=== PATIENT | female | born 1990 | race Caucasian/White ===

== ENCOUNTER 2017-06-03 17:35 | Emergency (ER) | payer SELFPAY ==
[2017-06-03] MEDS ORDERED: Ketorolac 60 MG/2 ML SDV IM ONE (18:13)
--- NOTE | 2017-06-03 18:37 | EDM.PDOC ---
ED HPI GENERAL MEDICAL PROBLEM - General Chief Complaint: Lower Extremity Injury/Pain Stated Complaint: PAIN RT SIDE HIP Time Seen by Provider: 06/03/17 17:53 Source of Information: Reports: Patient - History of Present Illness INITIAL COMMENTS - FREE TEXT/NARRATIVE: HISTORY AND PHYSICAL: History of present illness: [Obese female Patient presents with right-sided hip pain that radiates down the lateral side of her right leg to the level of the knee, rates 9 out of 10 today she had to leave work and was quite tearful. States she recently moved here 2 weeks ago she had no pain prior to this, she began work over the last 7-10 days and she has noted some small short lasting episodes of pain over the right hip lasting for 5 minutes or so at a time this is steadily increased to her now she is unable to bear weight without pain No fever nausea vomiting chills sweats no chest pain shortness breath headache dizziness palpitation no bowel or urine symptoms patient denies any trauma Patient denies an increase of activity such as heavy exercise however she has taken a job at [employer] which would be an increase in activity for this patient as she is been fairly sedentary since January ] Review of systems: As per history of present illness and below otherwise all systems reviewed and negative. Past medical history: As per history of present illness and as reviewed below otherwise noncontributory. Surgical history: As per history of present illness and as reviewed below otherwise noncontributory. Social history: No reported history of drug or alcohol abuse. Family history: As per history of present illness and as reviewed below otherwise noncontributory. Physical exam: HEENT: Atraumatic, normocephalic, pupils reactive, negative for conjunctival pallor or scleral icterus, mucous membranes moist, throat clear, neck supple, nontender, trachea midline. Lungs: Clear to auscultation, breath sounds equal bilaterally, chest nontender. Heart: S1S2, regular, negative for clicks, rubs, or JVD. Abdomen: Soft, nondistended, nontender. Negative for masses or hepatosplenomegaly. Negative for costovertebral tenderness. Pelvis: Stable nontender. Genitourinary: Deferred. Rectal: Deferred. Extremities: Atraumatic, negative for cords or calf pain. Neurovascular unremarkable. Neuro: Awake, alert, oriented. Cranial nerves II through XII unremarkable. Cerebellum unremarkable. Motor and sensory unremarkable throughout. Exam nonfocal. Right lower extremity a can reproduce pain along entire iliotibial band on the right actual hip knee seemed to be unaffected there is no redness warmth or open lesion no bruising entirely limb is neurovascularly intact Diagnostics: [Pelvis with right hip HCG CBC, CRP ] Therapeutics: [Toradol 60 IM Rest ice ibuprofen Tramadol ] Impression: [Iliotibial band syndrome] Definitive disposition and diagnosis as appropriate pending reevaluation and review of above. 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) Other OB/BYN History: Musculoskeletal History: Reports: None Neurological History: Reports: None Psychiatric History: Reports: None Endocrine/Metabolic History: Reports: None Hematologic History: Reports: None Immunologic History: Reports: None Oncologic (Cancer) History: Reports: None Dermatologic History: Reports: None - Infectious Disease History Infectious Disease History: Reports: Chicken Pox - Past Surgical History Head Surgeries/Procedures: Reports: None HEENT Surgical History: Reports: None Cardiovascular Surgical History: Reports: None Respiratory Surgical History: Reports: None GI Surgical History: Reports: None Female Surgical History: Reports: None, Tubal Ligation Endocrine Surgical History: Reports: None Neurological Surgical History: Reports: None Musculoskeletal Surgical History: Reports: None Oncologic Surgical History: Reports: None Dermatological Surgical History: Reports: None Social & Family History - Family History Family Medical History: Noncontributory - Tobacco Use Smoking Status *Q: Current Every Day Smoker Years of Tobacco use: 15 Packs/Tins Daily: 0.5 - Caffeine Use Caffeine Use: Reports: None - Recreational Drug Use Recreational Drug Use: No Review of Systems - Review of Systems Review Of Systems: ROS reveals no pertinent complaints other than HPI. ED EXAM, GENERAL - Physical Exam Exam: See Below Course - Vital Signs Last Recorded V/S: Last Vital Signs Temp 97.7 F 06/03/17 18:10 Pulse 99 01/17/18 18:10 Resp 18 06/03/17 18:10 BP 138/68 06/03/17 18:10 Pulse Ox 99 06/03/17 18:10 - Orders/Labs/Meds Orders: Active Orders 24 hr Category Date Time Status Hip Min 1V w Pelvis Rt [CR] Stat Exams 06/03/17 18:09 Ordered CBC WITH AUTO DIFF [HEME] Stat Lab 06/03/17 18:49 Ordered CRP [C-REACTIVE PROTEIN] [CHEM] Stat Lab 06/03/17 18:49 Ordered HCG QUALITATIVE,URINE [URCHEM] Stat Lab 06/03/17 18:09 Ordered Meds: Medications Discontinued Medications Generic Name Dose Route Start Last Admin Trade Name Freq PRN Reason Stop Dose Admin Ketorolac Tromethamine 60 mg 06/03/17 18:13 06/03/17 18:56 Toradol IM 06/03/17 18:14 60 mg ONETIME ONE Administration Departure - Departure Time of Disposition: 19:03 Disposition: Home, Self-Care 01 Condition: Good Clinical Impression: Iliotibial band syndrome - Discharge Information Referrals: PCP,None [Primary Care Provider] - Forms: ED Department Discharge Additional Instructions: Medication as prescribed Rest Ice 20 minute intervals 3 times daily 7 days Return if symptoms persist or worsen or new concerning symptoms develop Follow-up with primary care in 2 weeks sooner as needed [facility] [address] [place] [address] The following information is given to patients seen in the emergency department who are being discharged to home. This information is to outline your options for follow-up care. We provide all patients seen in our emergency department with a follow-up referral. The need for follow-up, as well as the timing and circumstances, are variable depending upon the specifics of your emergency department visit. If you don't have a primary care physician on staff, we will provide you with a referral. We always advise you to contact your personal physician following an emergency department visit to inform them of the circumstance of the visit and for follow-up with them and/or the need for any referrals to a consulting specialist. The emergency department will also refer you to a specialist when appropriate. This referral assures that you have the opportunity for follow-up care with a specialist. All of these measure are taken in an effort to provide you with optimal care, which includes your follow-up. Under all circumstances we always encourage you to contact your private physician who remains a resource for coordinating your care. When calling for follow-up care, please make the office aware that this follow-up is from your recent emergency room visit. If for any reason you are refused follow-up, please contact the [facility] emergency department at and asked to speak to the emergency department charge nurse. - My Orders Last 24 Hours: My Active Orders 06/03/17 18:09 Hip Min 1V w Pelvis Rt [CR] Stat HCG QUALITATIVE,URINE [URCHEM] Stat 06/03/17 18:49 CBC WITH AUTO DIFF [HEME] Stat CRP [C-REACTIVE PROTEIN] [CHEM] Stat - Assessment/Plan Last 24 Hours: My Active Orders 06/03/17 18:09 Hip Min 1V w Pelvis Rt [CR] Stat HCG QUALITATIVE,URINE [URCHEM] Stat 06/03/17 18:49 CBC WITH AUTO DIFF [HEME] Stat CRP [C-REACTIVE PROTEIN] [CHEM] Stat
--- NOTE | 2017-06-04 17:01 | CR ---
EXAM DATE: 06/03/17 PATIENT'S AGE: 27 Patient: HAILEY SOLIS Facility: [place], [place] Site . Site : 1990 Study: XRay Extremity Right [id number] 7:41:08 PM Ordering Physician: Doctor Ledezma Final Report: INDICATION: Hip pain TECHNIQUE: AP pelvis and two views right hip COMPARISON: None FINDINGS: Bones: The fractures. Bilateral acetabular roof spurs. . Joint spaces: Unremarkable. Soft tissues: Bilateral fallopian tube plugs or clips. IMPRESSION: Bilateral acetabular roof spurs otherwise unremarkable hip joints. Dictated by Elliott Guerrero MD @ 06/03/2017 8:04:46 PM Dictated by: Elliott Guerrero MD @ 06/03/2017 20:04:50 (Electronic Signature) Report Signed by Proxy. MTDJovanna
== END 2017-06-03 20:20 | disposition home or self-care (01) ==
LOC: MW.ED 17:35
DX: M76.31 Iliotibial band syndrome, right leg (principal); F17.210 Nicotine dependence, cigarettes, uncomplicated; Z79.899 Other long term (current) drug therapy
CPT/HCPCS: 36415; 73501; 81025; 85025; 86140; 96372; 99284; J1885

== ENCOUNTER 2017-10-06 20:25 | Emergency (ER) | payer SELFPAY ==
[2017-10-06] MEDS ORDERED: Sodium Chloride 0.9% 10 ML Syringe FLUSH PRN (20:54)
[2017-10-06] MEDS ORDERED: Sodium Chloride 0.9% 2.5 ML Syringe FLUSH PRN (20:54)
[2017-10-06] MEDS ORDERED: Ketorolac 30 MG/ML SDV IVPUSH ONE (20:55)
--- NOTE | 2017-10-06 21:01 | EDM.PDOC ---
<Justyna Mclaughlin R - Last Filed: 10/06/17 20:55> ED HPI GENERAL MEDICAL PROBLEM - General Chief Complaint: Chest Pain Stated Complaint: TROUBLE BREATHING/NUMBNESS RT ARM Time Seen by Provider: 10/06/17 20:33 Source of Information: Reports: Patient History Limitations: Reports: No Limitations - History of Present Illness INITIAL COMMENTS - FREE TEXT/NARRATIVE: Presents reporting substernal chest pain and tenderness that increases on a deep breath and when lying supine. Accompanied by sweating, a sensation of left arm numbness, shortness of breath, occasional cough, and pale skin per co- workers. She was working today when this started about noon and has become progressively worse. She is otherwise healthy without chronic medical problems. 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 (See Below) Other OB/BYN History: Musculoskeletal History: Reports: None Neurological History: Reports: None Psychiatric History: Reports: Depression Endocrine/Metabolic History: Reports: Obesity/BMI 30+ Hematologic History: Reports: None Immunologic History: Reports: None Oncologic (Cancer) History: Reports: None Dermatologic History: Reports: None - Infectious Disease History Infectious Disease History: Reports: Chicken Pox - Past Surgical History Head Surgeries/Procedures: Reports: None HEENT Surgical History: Reports: None Cardiovascular Surgical History: Reports: None Respiratory Surgical History: Reports: None GI Surgical History: Reports: None Female Surgical History: Reports: Tubal Ligation Endocrine Surgical History: Reports: None Neurological Surgical History: Reports: None Musculoskeletal Surgical History: Reports: None Oncologic Surgical History: Reports: None Dermatological Surgical History: Reports: None Social & Family History - Family History Family Medical History: Noncontributory - Tobacco Use Smoking Status *Q: Former Smoker Used Tobacco, but Quit: Yes Month/Year Tobacco Last Used: 1 - Caffeine Use Caffeine Use: Reports: None - Recreational Drug Use Recreational Drug Use: No ED ROS GENERAL - Review of Systems Review Of Systems: See Below Constitutional: Reports: No Symptoms. Denies: Fever HEENT: Reports: No Symptoms Respiratory: Reports: Shortness of Breath, Cough Cardiovascular: Reports: Chest Pain, Lightheadedness (Like she was going to pass out) Endocrine: Reports: No Symptoms GI/Abdominal: Reports: No Symptoms. Denies: Vomiting : Reports: No Symptoms Musculoskeletal: Reports: No Symptoms Skin: Reports: Pallor Neurological: Reports: Numbness (Left arm) Psychiatric: Reports: Depression Hematologic/Lymphatic: Reports: No Symptoms Immunologic: Reports: No Symptoms ED EXAM, GENERAL - Physical Exam Exam: See Below Exam Limited By: No Limitations General Appearance: Alert, Mild Distress (Due to chest pain and tenderness, holding chest over sternum.) Ears: Normal External Exam, Normal TMs Nose: Normal Inspection Throat/Mouth: Normal Inspection, Normal Oropharynx Head: Normocephalic Neck: Normal Inspection. No: Lymphadenopathy (L), Lymphadenopathy (R) Respiratory/Chest: No Respiratory Distress, Lungs Clear, Normal Breath Sounds Cardiovascular: Normal Peripheral Pulses, Regular Rate, Rhythm, No Edema, No Murmur GI/Abdominal: Soft, No Distention Back Exam: Normal Inspection Extremities: Normal Inspection Neurological: Alert, Oriented Psychiatric: Normal Affect, Normal Mood Skin Exam: Warm, Normal Color, No Rash, Diaphoretic Lymphatic: No Adenopathy Course - Vital Signs Last Recorded V/S: Last Vital Signs Temp 98.5 F 10/06/17 20:25 Pulse 95 10/06/17 20:25 Resp 24 H 10/06/17 20:25 BP 156/93 H 10/06/17 20:25 Pulse Ox 95 10/06/17 20:25 - Orders/Labs/Meds Orders: Active Orders 24 hr Category Date Time Status Chest 2V [CR] Stat Exams 10/06/17 20:54 Taken Sodium Chloride 0.9% [Saline Flush] Med 10/06/17 20:54 Active 10 ml FLUSH ASDIRECTED PRN Sodium Chloride 0.9% [Saline Flush] Med 10/06/17 20:54 Active 2.5 ml FLUSH ASDIRECTED PRN Saline Lock Insert [OM.PC] Stat Oth 10/06/17 20:53 Ordered Medication Orders Sodium Chloride (Saline Flush) 10 ml FLUSH ASDIRECTED PRN PRN Reason: Keep Vein Open Sodium Chloride (Saline Flush) 2.5 ml FLUSH ASDIRECTED PRN PRN Reason: Keep Vein Open Labs: Laboratory Tests 10/06/17 10/06/17 10/06/17 Range/Units 21:09 21:09 21:09 WBC 13.75 H (4.0-11.0) K/uL RBC 4.72 (4.30-5.90) M/uL Hgb 12.3 (12.0-16.0) g/dL Hct 39.1 (36.0-46.0) % MCV 82.8 (80.0-98.0) fL MCH 26.1 L (27.0-32.0) pg MCHC 31.5 (31.0-37.0) g/dL RDW Std Deviation 47.0 (28.0-62.0) fl RDW Coeff of Maverick 16 H (11.0-15.0) % Plt Count 317 (150-400) K/uL MPV 9.50 (7.40-12.00) fL Neut % (Auto) 72.9 (48.0-80.0) % Lymph % (Auto) 20.0 (16.0-40.0) % [place] % (Auto) 5.7 (0.0-15.0) % Eos % (Auto) 0.7 (0.0-7.0) % Baso % (Auto) 0.7 (0.0-1.5) % Neut # (Auto) 10.0 H (1.4-5.7) K/uL Lymph # (Auto) 2.8 H (0.6-2.4) K/uL [place] # (Auto) 0.8 (0.0-0.8) K/uL Eos # (Auto) 0.1 (0.0-0.7) K/uL Baso # (Auto) 0.1 (0.0-0.1) K/uL Nucleated RBC % 0.0 /100WBC Nucleated RBCs # 0 K/uL ESR 45 H (0-19) mm/hr Sodium 141 (136-145) mmol/L Potassium 4.1 (3.5-5.1) mmol/L Chloride 107 (98-107) mmol/L Carbon Dioxide 24.4 (21.0-32.0) mmol/L BUN 11 (7.0-18.0) mg/dL Creatinine 0.9 (0.6-1.0) mg/dL Est Cr Clr Drug Dosing 84.49 mL/min Estimated GFR (MDRD) > 60.0 ml/min Glucose 92 (74-106) mg/dL Calcium 8.9 (8.5-10.1) mg/dL Total Bilirubin 0.3 (0.2-1.0) mg/dL AST 26 (15-37) IU/L ALT 30 (14-63) IU/L Alkaline Phosphatase 97 (46-116) U/L Troponin I < 0.050 (0.000-0.056) ng/mL C-Reactive Protein 1.80 H (0.00-0.90) mg/dL Total Protein 7.9 (6.4-8.2) g/dL Albumin 3.8 (3.4-5.0) g/dL Globulin 4.1 H (2.0-3.5) g/dL Albumin/Globulin Ratio 0.9 L (1.3-2.8) Lipase 118 (73-393) U/L Meds: Medications Generic Name Dose Route Start Last Admin Trade Name Freq PRN Reason Stop Dose Admin Sodium Chloride 10 ml 10/06/17 20:54 Saline Flush FLUSH ASDIRECTED PRN Keep Vein Open Sodium Chloride 2.5 ml 10/06/17 20:54 Saline Flush FLUSH ASDIRECTED PRN Keep Vein Open Discontinued Medications Generic Name Dose Route Start Last Admin Trade Name Freq PRN Reason Stop Dose Admin Ketorolac Tromethamine 30 mg 10/06/17 20:55 10/06/17 21:30 Toradol IVPUSH 10/06/17 20:56 30 mg ONETIME ONE Administration Departure - Departure Disposition: Home, Self-Care 01 Clinical Impression: Costochondritis, Muscle spasm Referrals: PCP,None [Primary Care Provider] - Forms: ED Department Discharge Additional Instructions: The following information is given to patients seen in the emergency department who are being discharged to home. This information is to outline your options for follow-up care. We provide all patients seen in our emergency department with a follow-up referral. The need for follow-up, as well as the timing and circumstances, are variable depending upon the specifics of your emergency department visit. If you don't have a primary care physician on staff, we will provide you with a referral. We always advise you to contact your personal physician following an emergency department visit to inform them of the circumstance of the visit and for follow-up with them and/or the need for any referrals to a consulting specialist. The emergency department will also refer you to a specialist when appropriate. This referral assures that you have the opportunity for follow-up care with a specialist. All of these measure are taken in an effort to provide you with optimal care, which includes your follow-up. Under all circumstances we always encourage you to contact your private physician who remains a resource for coordinating your care. When calling for follow-up care, please make the office aware that this follow-up is from your recent emergency room visit. If for any reason you are refused follow-up, please contact the [facility] emergency department at and asked to speak to the emergency department charge nurse. <Flavio Hamlin - Last Filed: 10/06/17 22:13> ED HPI GENERAL MEDICAL PROBLEM - History of Present Illness INITIAL COMMENTS - FREE TEXT/NARRATIVE: HISTORY AND PHYSICAL: History of present illness: [Patient presents to ER by private vehicle as above, coworkers have encouraged her to come in and be checked out in the emergency room She has anterior chest wall pain that is easily reproducible along the right sternal border she did have a cough 2 days ago symptoms have been increasing since noon, I can also reproduce pain with movement of her left arm and in particular left pectoralis major at its insertion is quite painful. She has no fever nausea vomiting diarrhea constipation shortness of breath headache dizziness or palpitation no radiation arm neck or jaw no diaphoresis at current ] Review of systems: As per history of present illness and below otherwise all systems reviewed and negative. Past medical history: As per history of present illness and as reviewed below otherwise noncontributory. Surgical history: As per history of present illness and as reviewed below otherwise noncontributory. Social history: No reported history of drug or alcohol abuse. Family history: As per history of present illness and as reviewed below otherwise noncontributory. Physical exam: HEENT: Atraumatic, normocephalic, pupils reactive, negative for conjunctival pallor or scleral icterus, mucous membranes moist, throat clear, neck supple, nontender, trachea midline. Lungs: Clear to auscultation, breath sounds equal bilaterally, chest tenderness as described above along left and right sternal border left pectoralis major insertion is also tender Heart: S1S2, regular, negative for clicks, rubs, or JVD. Abdomen: Soft, nondistended, nontender. Negative for masses or hepatosplenomegaly. Negative for costovertebral tenderness. Pelvis: Stable nontender. Genitourinary: Deferred. Rectal: Deferred. Extremities: Atraumatic, negative for cords or calf pain. Neurovascular unremarkable. Neuro: Awake, alert, oriented. Cranial nerves II through XII unremarkable. Cerebellum unremarkable. Motor and sensory unremarkable throughout. Exam nonfocal. Diagnostics: [CBC CMP troponin CRP ESR performed lipase performed EKG Chest 1 view ] Therapeutics: [ Medrol dose pack Cataflam ] Impression: [ costochondritis Muscle spasm ] Definitive disposition and diagnosis as appropriate pending reevaluation and review of above. Departure - Departure Time of Disposition: 22:12 Condition: Good
[2017-10-06 21:49] LABS: CHLORIDE,CL 107 mmol/L (98-107); SODIUM,NA 141 mmol/L (136-145)
--- NOTE | 2017-10-07 14:57 | CR ---
EXAM DATE: 10/06/17 PATIENT'S AGE: 27 Patient: HAILEY SOLIS Facility: [place], [place] Site . Site : 1990 Study: XRay Chest [id number]/22/[id number] 9:50:17 PM Ordering Physician: Doctor Ledezma Final Report: INDICATION: chest pain and tenderness CHEST, PA AND LATERAL Upright PA and lateral radiographs of the chest were performed. Comparison: No previous studies are currently available for comparison. The lungs appear clear and there are no pleural effusions. Heart size and pulmonary vasculature appear normal. Visualized bones show no significant findings. IMPRESSION: No acute intrathoracic abnormality identified. DIEGO YOUNG MD [employer] Dictated by: Charan Young MD @ 10/06/2017 21:58:15 (Electronic Signature) Report Signed by Proxy. [facility]
== END 2017-10-06 22:54 | disposition home or self-care (01) ==
LOC: MW.ED 20:25
DX: M94.0 Chondrocostal junction syndrome [Tietze] (principal); M62.838 Other muscle spasm; Z79.899 Other long term (current) drug therapy; Z87.891 Personal history of nicotine dependence
CPT/HCPCS: 36415; 71046; 80053; 83690; 84484; 85025; 85652; 86140; 93005; 96374; 99285; J1885